=== PATIENT | male | born 1970 | race Caucasian/White ===

== ENCOUNTER 2020-07-30 11:49 | Emergency (ER) | payer BC, OTHER ==
[~2020-07-30] VITALS: Ht 177.8 cm; Wt 88.6 kg
--- NOTE | 2020-07-30 12:58 | NUR ---
Spoke with the provider about an order for pain medication, no orders received at this time since the patient took Ibuprofen prior to arrival.
[2020-07-30] MEDS ORDERED: NAPR-56 PO (13:09)
[2020-07-30] MEDS ORDERED: HYDR-3965 PO (13:09)
[2020-07-30] MEDS ORDERED: HYDROcodone/acetaminophen 5mg/325mg tablet PO ONE (13:10)
[2020-07-30 13:43] VITALS: BP 119/87
== END 2020-07-30 13:40 | disposition home or self-care (01) ==
LOC: ER 11:49
DX: S52.091A Other fracture of upper end of right ulna, initial encounter for closed fracture (principal); M25.521 Pain in right elbow; M79.631 Pain in right forearm; I10 Essential (primary) hypertension; K21.9 Gastro-esophageal reflux disease without esophagitis; Z72.89 Other problems related to lifestyle; Z79.899 Other long term (current) drug therapy; X58.XXXA Exposure to other specified factors, initial encounter; Y93.89 Activity, other specified; Y92.89 Other specified places as the place of occurrence of the external cause; Y99.8 Other external cause status
CPT/HCPCS: 73090; 99283